=== PATIENT | male | born 1940 | race Caucasian/White ===

== ENCOUNTER 2019-08-17 15:58 | Emergency (ER) | payer MEDICARE, BC ==
[~2019-08-17] VITALS: Ht 182.9 cm; Wt 100.0 kg
[~2019-08-17 15:58] MED LIST: ASPI-1264 PO; FAMO-128 PO; LISI-642 PO; MULT1TAB74 PO; NITR0.4T SL; ROSU10TA2 PO; TADA5TAB2 PO
[2019-08-17 16:24] LABS: BASOPHILS # (AUTO) 0.1 X10'3 (0-0.2); BASOPHILS % (AUTO) 0.9 % (0-1); EOSINOPHILS # (AUTO) 0.2 X10'3 (0-0.9); EOSINOPHILS % (AUTO) 2.3 % (0-6); HEMOGLOBIN 14.4 g/dl (14.0-17.9); LYMPHOCYTES # (AUTO) 2.1 X10'3 (1.1-4.8); LYMPHOCYTES % (AUTO) 30.7 % (21-51); MEAN CORPUSCULAR VOLUME 94.1 FL (78-98); MEAN PLATELET VOLUME 7.4 FL (7.4-10.4); MONOCYTES # (AUTO) 0.7 X10'3 (0-0.9); MONOCYTES % (AUTO) 10.1 % (2-12); NEUTROPHILS # (AUTO) 3.8 X10'3 (1.8-7.7); PLATELET COUNT 199 X10'3 (140-440); RED BLOOD COUNT 4.36 X10'6 (4.70-6.10); RED CELL DISTRIBUTION WIDTH 12.9 % (11.5-14.5); WHITE BLOOD COUNT 6.7 X10'3 (4.5-11.0)
[2019-08-17 16:36] LABS: ALANINE AMINOTRANSFERASE 20 U/L (12-78); ALBUMIN 3.4 G/DL (3.4-5.0); ALBUMIN/GLOBULIN RATIO 0.9 (1.1-1.5); ANION GAP 7 (8-16); ASPARTATE AMINO TRANSFERASE 17 U/L (10-37); BILIRUBIN,TOTAL 0.3 MG/DL (0.1-1.0); BLOOD UREA NITROGEN 20 MG/DL (7-18); BUN/CREATININE RATIO 16.8 (5.4-32.0); CALCIUM 8.3 MG/DL (8.5-10.1); CHLORIDE 105 MMOL/L (99-107); CREATININE 1.19 MG/DL (0.60-1.10); GLUCOSE 119 MG/DL (70-104); POTASSIUM 4.3 MMOL/L (3.5-5.1); SODIUM 139 MMOL/L (135-145); eGFR 59 ML/MIN
[2019-08-17 16:47] LABS: ALKALINE PHOSPHATASE 90 IU/L (46-116)
--- NOTE | 2019-08-17 17:18 | NUR ---
Relieving RN for lunch. Pt is resting quietly. Resp. even and unlabored. Pt states left sided chest pain has resolved. Family at bedside.
[2019-08-17 17:43] LABS: D-DIMER 1.67 MG/L FEU (0-0.50)
[2019-08-17] MEDS ORDERED: iohexol 350MG/ML 100ml bottle IV ONE (18:05)
[2019-08-17] MEDS ORDERED: normal saline 1000ml 1,000 ML IV ONE (18:15)
--- NOTE | 2019-08-17 18:28 | NUR ---
500 ML NS BOLUS TO BE GIVE AFTER CT SCAN IS DONE PER PA.
[2019-08-17 20:28] VITALS: BP 167/91
== END 2019-08-17 20:29 | disposition home or self-care (01) ==
LOC: ER 15:58
DX: R07.89 Other chest pain (principal); I25.10 Atherosclerotic heart disease of native coronary artery without angina pectoris; E78.00 Pure hypercholesterolemia, unspecified; I10 Essential (primary) hypertension; Z95.5 Presence of coronary angioplasty implant and graft; Z79.82 Long term (current) use of aspirin; Z79.899 Other long term (current) drug therapy
CPT/HCPCS: 36415; 71045; 71260; 80053; 84484; 85025; 85379; 93005; 99284; J7030; Q9967

== ENCOUNTER 2022-03-07 05:15 | Emergency (ER) | payer MEDICARE, BC ==
[~2022-03-07] VITALS: Ht 180.3 cm; Wt 101.1 kg
[~2022-03-07 05:15] MED LIST changes: +MULT-620 PO; -MULT1TAB74 PO
[2022-03-07 07:20] LABS: BASOPHILS % (AUTO) 0.5 % (0-1); EOSINOPHILS # (AUTO) 0.1 X10'3 (0-0.9); HEMATOCRIT 43.8 % (42.0-52.0); HEMOGLOBIN 14.9 g/dl (14.0-17.9); LYMPHOCYTES # (AUTO) 1.5 X10'3 (1.1-4.8); MEAN CORPUSCULAR HGB CONC 34.1 g/dL (33.0-36.5); MEAN CORPUSCULAR VOLUME 93.8 FL (78-98); MEAN PLATELET VOLUME 7.3 FL (7.4-10.4); MONOCYTES # (AUTO) 0.6 X10'3 (0-0.9); MONOCYTES % (AUTO) 9.4 % (2-12); NEUTROPHILS # (AUTO) 4.3 X10'3 (1.8-7.7); NEUTROPHILS % (AUTO) 66.1 % (42-75); PLATELET COUNT 193 X10'3 (140-440); RED BLOOD COUNT 4.67 X10'6 (4.70-6.10); RED CELL DISTRIBUTION WIDTH 13.3 % (11.5-14.5); WHITE BLOOD COUNT 6.4 X10'3 (4.5-11.0)
[2022-03-07 07:37] LABS: ALANINE AMINOTRANSFERASE 19 U/L (12-78); ALBUMIN 3.7 G/DL (3.4-5.0); ALKALINE PHOSPHATASE 76 IU/L (46-116); ANION GAP 11 (8-16); ASPARTATE AMINO TRANSFERASE 21 U/L (10-37); BILIRUBIN,TOTAL 0.5 MG/DL (0.1-1.0); BLOOD UREA NITROGEN 24 MG/DL (7-18); BUN/CREATININE RATIO 19.8 (5.4-32.0); CALCIUM 8.6 MG/DL (8.5-10.1); CHLORIDE 107 MMOL/L (99-107); CREATININE 1.21 MG/DL (0.60-1.10); GLUCOSE 130 MG/DL (70-104); POTASSIUM 4.4 MMOL/L (3.5-5.1); SODIUM 141 MMOL/L (135-145); TOTAL CARBON DIOXIDE 23.5 MMOL/L (24-32); TOTAL PROTEIN 7.3 G/DL (6.4-8.2); eGFR 57 ML/MIN
[2022-03-07 09:14] VITALS: BP 154/69
== END 2022-03-07 09:16 | disposition home or self-care (01) ==
LOC: ER 05:16
DX: R06.02 Shortness of breath (principal); G47.33 Obstructive sleep apnea (adult) (pediatric); I25.10 Atherosclerotic heart disease of native coronary artery without angina pectoris; E78.00 Pure hypercholesterolemia, unspecified; I10 Essential (primary) hypertension; Z95.5 Presence of coronary angioplasty implant and graft; Z79.82 Long term (current) use of aspirin; Z79.899 Other long term (current) drug therapy
CPT/HCPCS: 36415; 71045; 80053; 83880; 84484; 85025; 93005; 99285

== ENCOUNTER 2022-09-08 12:45 | Day surgery (SDC) | payer MEDICARE, BC ==
[2022-09-03 09:29] LABS: BASOPHILS % (AUTO) 0.8 % (0-1); EOSINOPHILS # (AUTO) 0.2 X10'3 (0-0.9); EOSINOPHILS % (AUTO) 3.1 % (0-6); HEMATOCRIT 41.6 % (42.0-52.0); HEMOGLOBIN 14.2 g/dl (14.0-17.9); LYMPHOCYTES # (AUTO) 1.8 X10'3 (1.1-4.8); LYMPHOCYTES % (AUTO) 29.7 % (21-51); MEAN CORPUSCULAR HEMOGLOBIN 32.1 PG (27.0-31.0); MEAN CORPUSCULAR HGB CONC 34.1 g/dL (33.0-36.5); MEAN CORPUSCULAR VOLUME 94.4 FL (78-98); MEAN PLATELET VOLUME 7.1 FL (7.4-10.4); MONOCYTES # (AUTO) 0.7 X10'3 (0-0.9); MONOCYTES % (AUTO) 11.3 % (2-12); NEUTROPHILS # (AUTO) 3.3 X10'3 (1.8-7.7); NEUTROPHILS % (AUTO) 55.1 % (42-75); PLATELET COUNT 189 X10'3 (140-440); RED BLOOD COUNT 4.41 X10'6 (4.70-6.10); RED CELL DISTRIBUTION WIDTH 13.2 % (11.5-14.5)
[2022-09-03 09:42] LABS: APTT 26 SECONDS (22-32)
[2022-09-03 09:48] LABS: ALBUMIN 3.5 G/DL (3.4-5.0); BLOOD UREA NITROGEN 19 MG/DL (7-18); BUN/CREATININE RATIO 15.3 (5.4-32.0); CALCIUM 8.9 MG/DL (8.5-10.1); CHOL/HDL RATIO 2.6 (0.00-4.99); CHOLESTEROL 105 MG/DL (0-200); CREATININE 1.24 MG/DL (0.60-1.10); GLUCOSE 119 MG/DL (70-104); HDL CHOLESTEROL 40 MG/DL (35-60); LDL CHOLESTEROL 46 MG/DL (50-100); TOTAL CARBON DIOXIDE 28.1 MMOL/L (24-32); TRIGLYCERIDES 160 MG/DL (20-135); eGFR 56 ML/MIN
[2022-09-03 10:00] LABS: ANION GAP 9 (8-16); CHLORIDE 105 MMOL/L (99-107); POTASSIUM 4.4 MMOL/L (3.5-5.1); SODIUM 142 MMOL/L (135-145)
[2022-09-08] VITALS (10 sets, daily range): BP systolic 126–165; BP diastolic 58–72
[~2022-09-08] VITALS: Ht 182.9 cm; Wt 102.1 kg
[2022-09-08] MEDS ORDERED: diphenhydrAMINE 25mg capsule PO PRN (13:00)
[2022-09-08] MEDS ORDERED: normal saline 1,000 ML IV SCH (13:00)
[2022-09-08] MEDS ORDERED: LORazepam 0.5 MG tablet PO PRN (13:00)
[2022-09-08] MEDS ORDERED: ASPI81TA52 PO (13:19)
[2022-09-08] MEDS ORDERED: LEVO100T9 PO (13:19)
[2022-09-08] MEDS ORDERED: DUTA0.5C36 PO (13:19)
[2022-09-08] MEDS ORDERED: DOCU-148 PO (13:19)
[2022-09-08] MEDS ORDERED: FLO0.4C PO (13:19)
[2022-09-08] MEDS ORDERED: verapamil 2.5 mg/ml inj IV ONE (15:12)
[2022-09-08] MEDS ORDERED: LIDOcaine 1% (10mg/ml) 2ml vial ONE (15:12)
[2022-09-08] MEDS ORDERED: midazolam 1 mg/ML 2ml injection ONE (15:13)
[2022-09-08] MEDS ORDERED: heparin 1,000unit/ml 10ml vial 10 ML ONE (15:13)
[2022-09-08] MEDS ORDERED: IOHEXOL 350 MG/ML INFUS..BTL 125ML IV ONE (15:13)
[2022-09-08] MEDS ORDERED: fentaNYL/PF 50MCG/1 ML 2ML syringe ONE (15:13)
[2022-09-08] MEDS ORDERED: nitroGLYCERIN-Tridil 50MG/D5W 250 ML IV ONE (15:13)
[2022-09-09 06:26] LABS: ISTAT Hct MIX 35 %PCV (42-52); ISTAT O2 SATURATION MIX VENOUS 67 % (60-80); ISTAT SOURCE VEN
== END 2022-09-08 19:32 | disposition home or self-care (01) ==
LOC: SSTAY O 12:45
PROVIDERS: ATTEND Student in an Organized Health Care Education/Training Program
DX: I25.10 Atherosclerotic heart disease of native coronary artery without angina pectoris (principal); T82.855A Stenosis of coronary artery stent, initial encounter; I35.0 Nonrheumatic aortic (valve) stenosis; Y83.8 Other surgical procedures as the cause of abnormal reaction of the patient, or of later complication, without mention of misadventure at the time of the procedure; G47.33 Obstructive sleep apnea (adult) (pediatric); I10 Essential (primary) hypertension; Z79.82 Long term (current) use of aspirin; Z79.899 Other long term (current) drug therapy
CPT/HCPCS: 36415; 80048; 80061; 82803; 85014; 85025; 85610; 85730; 93005; 93451; 99152; 99153; A6258; C1769; C1894; J1644; J2250; J3010; J3490; J7030; Q9967; 93458; A6402

== ENCOUNTER 2023-03-12 08:39 | Observation (INO) | payer MEDICARE, BC ==
[~2023-03-12] VITALS: Ht 180.3 cm; Wt 90.6 kg
[~2023-03-12 08:39] MED LIST changes: +AMIO200T67 PO; +APIX5TAB3 PO; -ASPI-1264 PO; +ASPI81TA52 PO; +DOCU-148 PO; +DUTA0.5C36 PO; -FAMO-128 PO; +FLO0.4C PO; +HYDR-3972 PO; +LEVO100T9 PO; -LISI-642 PO; +LOP12.5T PO; -NITR0.4T SL; -ROSU10TA2 PO; +ROSU40TA22 PO; -TADA5TAB2 PO
[2023-03-12 09:18] LABS: BASOPHILS % (AUTO) 0.6 % (0-1); EOSINOPHILS # (AUTO) 0.1 X10'3 (0-0.9); EOSINOPHILS % (AUTO) 1.5 % (0-6); HEMATOCRIT 39.9 % (42.0-52.0); HEMOGLOBIN 12.9 g/dl (14.0-17.9); LYMPHOCYTES # (AUTO) 1.3 X10'3 (1.1-4.8); LYMPHOCYTES % (AUTO) 15.3 % (21-51); MEAN CORPUSCULAR HEMOGLOBIN 28.8 PG (27.0-31.0); MEAN CORPUSCULAR HGB CONC 32.4 g/dL (33.0-36.5); MEAN CORPUSCULAR VOLUME 89.1 FL (78-98); MEAN PLATELET VOLUME 7.6 FL (7.4-10.4); MONOCYTES # (AUTO) 0.7 X10'3 (0-0.9); MONOCYTES % (AUTO) 8.8 % (2-12); NEUTROPHILS % (AUTO) 73.8 % (42-75); PLATELET COUNT 171 X10'3 (140-440); RED BLOOD COUNT 4.48 X10'6 (4.70-6.10); RED CELL DISTRIBUTION WIDTH 15.4 % (11.5-14.5); WHITE BLOOD COUNT 8.2 X10'3 (4.5-11.0)
[2023-03-12 10:48] LABS: ALANINE AMINOTRANSFERASE 15 U/L (12-78); ALBUMIN 3.3 G/DL (3.4-5.0); ALBUMIN/GLOBULIN RATIO 0.9 (1.1-1.5); ALKALINE PHOSPHATASE 93 IU/L (46-116); ANION GAP 8 (8-16); ASPARTATE AMINO TRANSFERASE 14 U/L (10-37); BILIRUBIN,TOTAL 0.5 MG/DL (0.1-1.0); BLOOD UREA NITROGEN 22 MG/DL (7-18); BUN/CREATININE RATIO 15.5 (10.0-20.0); CALCIUM 8.6 MG/DL (8.5-10.1); CHLORIDE 103 MMOL/L (99-107); CREATININE 1.42 MG/DL (0.60-1.10); GLUCOSE 231 MG/DL (70-104); POTASSIUM 4.1 MMOL/L (3.5-5.1); SODIUM 135 MMOL/L (135-145); eGFR 47 ML/MIN
[2023-03-12] MEDS ORDERED: aspirin 81mg tab.chew PO ONE (16:15)
[2023-03-12] MEDS ORDERED: nitroGLYCERIN 1gm ointment UD TP ONE (16:15)
[2023-03-12] MEDS ORDERED: diltiazem 5mg/ml 5ml inj. IV ONE (16:15)
--- NOTE | 2023-03-12 16:35 | NUR ---
DR DIAZ AT BEDSIDE.
--- NOTE | 2023-03-12 16:59 | NUR ---
RECEVIVED VERBAL ORDERS FROM DR DIAZ FOR DILTAZEAM 100MG /100ML INFUSE AT 5 MG/HR FOR AFIB RVR.
[2023-03-12] MEDS ORDERED: diltiazem-NS 100mg/100ml 100 ML IV SCH (17:00)
[2023-03-12] MEDS ORDERED: METO-395 PO (17:11)
[2023-03-12] MEDS ORDERED: multivitamins, therapeutics tablet PO SCH (18:10)
[2023-03-12] MEDS ORDERED: potassium Cl 20 mEq SR tablet PO PRN ×2 (18:15)
[2023-03-12] MEDS ORDERED: ondansetron/PF 4mg/2ml inj IV PRN (18:15)
[2023-03-12] MEDS ORDERED: magnesium 4gm in 100ml NS 100 ML IV PRN (18:15)
[2023-03-12] MEDS ORDERED: diphenhydrAMINE 25mg capsule PO PRN (18:15)
[2023-03-12] MEDS ORDERED: mag hydrox/Alum hydrox/simeth 30ml oral suspension PO PRN (18:15)
[2023-03-12] MEDS ORDERED: potassium Cl 40MEQ/1/2NS 520ml 520 ML IV PRN (18:15)
[2023-03-12] MEDS ORDERED: PERFLUTREN PROTEIN-A MICROSPHR (Optison) 0.22 MG/ML 3ML VIAL IV ONE (18:15)
[2023-03-12] MEDS ORDERED: bisacodyl 10mg suppository rectal RC PRN (18:15)
[2023-03-12] MEDS ORDERED: magnesium hydroxide 30ml (MOM) UD suspension PO PRN (18:15)
[2023-03-12] MEDS ORDERED: magnesium 2GM in 50ml NS 50 ML IV PRN (18:15)
[2023-03-12] MEDS ORDERED: magnesium Cl slow-release 64mg tablet PO PRN (18:15)
--- NOTE | 2023-03-12 18:36 | NUR ---
ASSUMED CARE FROM GAY, URINE OBTAINED AND NO COMPLAINTS AT THIS TIME
[2023-03-12 18:50] LABS: CLARITY,URINE CLEAR (Clear); COLOR,URINE YELLOW (Yellow); GLUCOSE, URINE NEGATIVE (Neg); KETONES,URINE NEGATIVE (Neg); LEUKOCYTE ESTERASE ,URINE NEGATIVE (Neg); NITRITES, URINE NEGATIVE (Neg); OCCULT BLOOD,URINE NEGATIVE (Neg); PROTEIN,URINE TRACE mg/dl (Neg); UROBILINOGEN,URINE 0.2 E.U/dL (0.2-1.0)
[2023-03-12] MEDS: normal saline 1000ml 1,000 ML IV SCH (18:53)
[2023-03-12 18:55] LABS: HEMOGLOBIN A1C 6.1 % (4.5-6.2)
[2023-03-12 18:57] LABS: UA COLLECTION TYPE URINAL
[2023-03-12 19:00] LABS: BACTERIA,URINE FEW /HPF (Neg); MUCUS STRANDS NONE SEEN /LPF (Neg); RBC,URINE 0-2 /HPF (0-2); SQUAMOUS EPITHELIAL CELL,UR NONE SEEN /LPF (FEW)
[2023-03-12] MEDS ORDERED: K and/or MAG REPLACEMENT MC SCH (20:00)
[2023-03-12] MEDS: docusate sod 100mg capsule PO SCH (20:00)
[2023-03-12] MEDS: tamsulosin 0.4mg capsule PO SCH (20:00)
--- NOTE | 2023-03-12 21:35 | NUR ---
pt unable to tolerate our bipap due to the mask. pt daughter to bring home bipap from home shortly
[2023-03-12] MEDS: apixaban 5mg tablet PO SCH (22:35)
[2023-03-12 22:45] VITALS: BP 114/68
[2023-03-12 23:00] VITALS: BP 117/66
[2023-03-12 23:15] VITALS: BP 106/63
[2023-03-12 23:30] VITALS: BP 95/70
[2023-03-13] VITALS (10 sets, daily range): BP systolic 82–115; BP diastolic 46–73
[2023-03-13 06:20] LABS: BASOPHILS % (AUTO) 0.3 % (0-1); EOSINOPHILS % (AUTO) 0.4 % (0-6); HEMATOCRIT 35.7 % (42.0-52.0); HEMOGLOBIN 11.7 g/dl (14.0-17.9); LYMPHOCYTES # (AUTO) 1.6 X10'3 (1.1-4.8); LYMPHOCYTES % (AUTO) 17.2 % (21-51); MEAN CORPUSCULAR HEMOGLOBIN 29.1 PG (27.0-31.0); MEAN CORPUSCULAR HGB CONC 32.9 g/dL (33.0-36.5); MEAN CORPUSCULAR VOLUME 88.6 FL (78-98); MEAN PLATELET VOLUME 7.8 FL (7.4-10.4); MONOCYTES # (AUTO) 1.3 X10'3 (0-0.9); MONOCYTES % (AUTO) 14.6 % (2-12); NEUTROPHILS # (AUTO) 6.1 X10'3 (1.8-7.7); NEUTROPHILS % (AUTO) 67.5 % (42-75); PLATELET COUNT 165 X10'3 (140-440); RED BLOOD COUNT 4.03 X10'6 (4.70-6.10); RED CELL DISTRIBUTION WIDTH 15.3 % (11.5-14.5); WHITE BLOOD COUNT 9.1 X10'3 (4.5-11.0)
[2023-03-13 06:42] LABS: ALANINE AMINOTRANSFERASE 13 U/L (12-78); ALBUMIN 2.7 G/DL (3.4-5.0); ALBUMIN/GLOBULIN RATIO 0.8 (1.1-1.5); ALKALINE PHOSPHATASE 73 IU/L (46-116); ANION GAP 10 (8-16); ASPARTATE AMINO TRANSFERASE 12 U/L (10-37); BILIRUBIN,TOTAL 0.7 MG/DL (0.1-1.0); BLOOD UREA NITROGEN 25 MG/DL (7-18); BUN/CREATININE RATIO 20.5 (10.0-20.0); CALCIUM 8.1 MG/DL (8.5-10.1); CHLORIDE 104 MMOL/L (99-107); CHOLESTEROL 84 MG/DL (0-200); CREATININE 1.22 MG/DL (0.60-1.10); GLUCOSE 123 MG/DL (70-104); HDL CHOLESTEROL 43 MG/DL (35-60); LDL CHOLESTEROL 32 MG/DL (50-100); MAGNESIUM 2.1 MG/DL (1.5-2.4); PHOSPHORUS 3.4 MG/DL (2.3-4.5); POTASSIUM 4.1 MMOL/L (3.5-5.1); SODIUM 137 MMOL/L (135-145); TOTAL CARBON DIOXIDE 23.3 MMOL/L (24-32); TOTAL PROTEIN 6.2 G/DL (6.4-8.2); TRIGLYCERIDES 60 MG/DL (20-135); eGFR 57 ML/MIN
--- NOTE | 2023-03-13 06:55 | NUR ---
Patient in room PCU 3023L. I have received report from Maria Luz CAMPOVERDE and had the opportunity to ask questions and assume patient care. Pt laying low fowlers in bed and is resting comfortably. Pt on RA, no s/s of distress. Pt declines c/o pain at this time. Pt on Cardizem GTT running @5ml/hr. VSS, PT still in AFib. BLL, call light within reach, frequently used items in reach, frequent rounidng, admissions manager socks on. Will continue to monitor.
[2023-03-13] MEDS: docusate sod 100mg capsule PO SCH (07:28)
[2023-03-13] MEDS: apixaban 5mg tablet PO SCH (07:29)
[2023-03-13] MEDS: tamsulosin 0.4mg capsule PO SCH (07:29)
[2023-03-13] MEDS ORDERED: aspirin 81mg, enteric-coated 1 TAB TABLET.DR PO SCH (08:00)
[2023-03-13] MEDS ORDERED: atorvastatin 20mg tablet PO SCH (08:00)
[2023-03-13] MEDS ORDERED: dutasteride 0.5 MG capsule PO SCH (08:00)
[2023-03-13] MEDS ORDERED: metoprolol succinate 25mg (24-HOUR) SR. Tablet PO SCH (08:00)
[2023-03-13] MEDS ORDERED: levoTHYROXINE 100mcg tablet PO SCH (08:00)
[2023-03-13] MEDS ORDERED: docusate sod 100mg capsule PO SCH (08:00)
--- NOTE | 2023-03-13 13:56 | NUR ---
PAGER ID: [phone] MESSAGE: Enrico Sanderson [id number] - VSS, No changes in HR. Pt sated he did excellent. No issues. -Jackie GOMEZ [phone] Addendum: 03/13/23 at 1418 by Jackie Yee RN [email or web address] pager entered
--- NOTE | 2023-03-13 14:18 | NUR ---
PAGER ID: [phone] MESSAGE: Enrico Sanderson [id number] - VSS, No changes in HR. PT sated he did excellent. No issues. -Jackie [phone] [phone]
[2023-03-13] MEDS: normal saline 1000ml 1,000 ML IV SCH (14:19)
[2023-03-13] MEDS ORDERED: APIX5TAB3 PO (14:44)
[2023-03-13] MEDS ORDERED: METO-395 PO (14:44)
--- NOTE | 2023-03-13 15:54 | NUR ---
Pt DC'd to personal vehicle. PIV to RFA removed, tip intact, no c/o pain with removal. VSS, Pt afebrile, no issues with medications. Discharge education provided. All discharge questions answered. All belongings left with Pt.
== END 2023-03-13 15:36 | disposition home or self-care (01) ==
LOC: ER 08:39 → INTOOBSV 18:23 → ED HOLD 18:23 → PCU 3S 22:10
PROVIDERS: ADMIT Family Medicine; ATTEND Family Medicine
DX: I48.91 Unspecified atrial fibrillation (principal); I25.10 Atherosclerotic heart disease of native coronary artery without angina pectoris; I10 Essential (primary) hypertension; E78.5 Hyperlipidemia, unspecified; N40.0 Benign prostatic hyperplasia without lower urinary tract symptoms; E03.9 Hypothyroidism, unspecified; E78.00 Pure hypercholesterolemia, unspecified; Z79.899 Other long term (current) drug therapy
CPT/HCPCS: 36415; 71045; 80053; 80061; 81001; 83036; 83735; 83880; 84100; 84443; 84484; 85025; 87081; 87088; 93005; 93306; 94660; 94760; 96361; 96365; 96366; 96376; 97161; 97530; 99285; G0378; J3490; J7030

== ENCOUNTER 2023-03-27 16:15 | Emergency (ER) | payer MEDICARE, BC ==
[~2023-03-27] VITALS: Ht 180.3 cm; Wt 99.8 kg
[~2023-03-27 16:15] MED LIST changes: -AMIO200T67 PO; -ASPI81TA52 PO; -HYDR-3972 PO; -LOP12.5T PO; +METO-395 PO
[2023-03-27] MEDS ORDERED: ondansetron 4mg rapidly disintigrating tab PO ONE (16:50)
[2023-03-27] MEDS ORDERED: ONDA4TAB12 PO (16:50)
[2023-03-27 17:19] VITALS: BP 146/80
== END 2023-03-27 17:25 | disposition home or self-care (01) ==
LOC: ER 16:16
DX: U07.1 COVID-19 (principal); E78.00 Pure hypercholesterolemia, unspecified; I10 Essential (primary) hypertension; Z88.6 Allergy status to analgesic agent
CPT/HCPCS: 99283

== ENCOUNTER 2023-04-03 06:10 | Emergency (ER) | payer MEDICARE, BC ==
[~2023-04-03] VITALS: Ht 180.3 cm; Wt 95.5 kg
[~2023-04-03 06:10] MED LIST changes: +ONDA4TAB12 PO
[2023-04-03 07:01] LABS: BASOPHILS % (AUTO) 0.4 % (0-1); EOSINOPHILS % (AUTO) 0.5 % (0-6); HEMOGLOBIN 14.1 g/dl (14.0-17.9); LYMPHOCYTES # (AUTO) 1.4 X10'3 (1.1-4.8); MEAN CORPUSCULAR HEMOGLOBIN 28.9 PG (27.0-31.0); MEAN CORPUSCULAR HGB CONC 32.8 g/dL (33.0-36.5); MEAN CORPUSCULAR VOLUME 87.9 FL (78-98); MEAN PLATELET VOLUME 7.5 FL (7.4-10.4); MONOCYTES # (AUTO) 0.6 X10'3 (0-0.9); MONOCYTES % (AUTO) 9.3 % (2-12); NEUTROPHILS # (AUTO) 4.3 X10'3 (1.8-7.7); NEUTROPHILS % (AUTO) 67.8 % (42-75); PLATELET COUNT 200 X10'3 (140-440); RED BLOOD COUNT 4.89 X10'6 (4.70-6.10); RED CELL DISTRIBUTION WIDTH 15.6 % (11.5-14.5); WHITE BLOOD COUNT 6.3 X10'3 (4.5-11.0)
[2023-04-03 07:11] LABS: APTT 31 SECONDS (22-32)
[2023-04-03 07:15] LABS: ALANINE AMINOTRANSFERASE 30 U/L (12-78); ALBUMIN 3.2 G/DL (3.4-5.0); ALBUMIN/GLOBULIN RATIO 0.8 (1.1-1.5); ALKALINE PHOSPHATASE 98 IU/L (46-116); ANION GAP 9 (8-16); ASPARTATE AMINO TRANSFERASE 28 U/L (10-37); BILIRUBIN,TOTAL 0.5 MG/DL (0.1-1.0); BLOOD UREA NITROGEN 22 MG/DL (7-18); BUN/CREATININE RATIO 13.4 (10.0-20.0); CALCIUM 9.1 MG/DL (8.5-10.1); CHLORIDE 104 MMOL/L (99-107); CREATININE 1.64 MG/DL (0.60-1.10); GLUCOSE 159 MG/DL (70-104); POTASSIUM 4.5 MMOL/L (3.5-5.1); SODIUM 138 MMOL/L (135-145); TOTAL CARBON DIOXIDE 24.8 MMOL/L (24-32); TOTAL PROTEIN 7.3 G/DL (6.4-8.2); eGFR 40 ML/MIN
[2023-04-03] MEDS ORDERED: normal saline 1000ML IV soln IVB ONE (08:45)
[2023-04-03 10:20] LABS: CLARITY,URINE CLEAR (Clear); COLOR,URINE YELLOW (Yellow); GLUCOSE, URINE NEGATIVE (Neg); KETONES,URINE NEGATIVE (Neg); LEUKOCYTE ESTERASE ,URINE NEGATIVE (Neg); NITRITES, URINE NEGATIVE (Neg); OCCULT BLOOD,URINE NEGATIVE (Neg); PROTEIN,URINE TRACE mg/dl (Neg); UROBILINOGEN,URINE 0.2 E.U/dL (0.2-1.0)
[2023-04-03 10:23] LABS: UA COLLECTION TYPE CLN CATCH MIDSTREAM
[2023-04-03 10:24] LABS: SQUAMOUS EPITHELIAL CELL,UR FEW /LPF (FEW)
[2023-04-03 10:25] LABS: BACTERIA,URINE FEW /HPF (Neg); RBC,URINE 0-2 /HPF (0-2); WBC,URINE 0-4 /HPF (0-4)
[2023-04-03] MEDS ORDERED: metoprolol tartrate 1mg/ml inj IV ONE (11:20)
[2023-04-03 12:17] VITALS: BP 136/88
== END 2023-04-03 12:18 | disposition home or self-care (01) ==
LOC: ER 06:10
DX: I48.91 Unspecified atrial fibrillation (principal); R06.00 Dyspnea, unspecified; E78.00 Pure hypercholesterolemia, unspecified; I10 Essential (primary) hypertension; Z88.6 Allergy status to analgesic agent; Z88.8 Allergy status to other drugs, medicaments and biological substances
CPT/HCPCS: 36415; 71045; 80053; 81001; 83880; 84484; 85025; 85610; 85730; 93005; 96361; 96374; 99285; J3490; J7030

== ENCOUNTER 2023-04-08 09:42 | Emergency (ER) | payer MEDICARE, BC ==
[~2023-04-08] VITALS: Ht 180.3 cm; Wt 92.3 kg
--- NOTE | 2023-04-08 09:50 | NUR ---
USING RESTROOM AT THIS TIME.
[2023-04-08 10:33] LABS: BASOPHILS % (AUTO) 0.7 % (0-1); EOSINOPHILS % (AUTO) 0.6 % (0-6); HEMATOCRIT 41.3 % (42.0-52.0); HEMOGLOBIN 13.6 g/dl (14.0-17.9); LYMPHOCYTES # (AUTO) 1.3 X10'3 (1.1-4.8); LYMPHOCYTES % (AUTO) 19.4 % (21-51); MEAN CORPUSCULAR HGB CONC 32.9 g/dL (33.0-36.5); MEAN CORPUSCULAR VOLUME 87.9 FL (78-98); MEAN PLATELET VOLUME 7.2 FL (7.4-10.4); MONOCYTES # (AUTO) 0.7 X10'3 (0-0.9); MONOCYTES % (AUTO) 9.8 % (2-12); NEUTROPHILS # (AUTO) 4.6 X10'3 (1.8-7.7); NEUTROPHILS % (AUTO) 69.5 % (42-75); PLATELET COUNT 226 X10'3 (140-440); RED CELL DISTRIBUTION WIDTH 15.8 % (11.5-14.5); WHITE BLOOD COUNT 6.7 X10'3 (4.5-11.0)
[2023-04-08 10:46] LABS: ALANINE AMINOTRANSFERASE 28 U/L (12-78); ALBUMIN 3.3 G/DL (3.4-5.0); ALBUMIN/GLOBULIN RATIO 0.9 (1.1-1.5); ALKALINE PHOSPHATASE 90 IU/L (46-116); ANION GAP 12 (8-16); ASPARTATE AMINO TRANSFERASE 26 U/L (10-37); BILIRUBIN,TOTAL 0.4 MG/DL (0.1-1.0); BLOOD UREA NITROGEN 19 MG/DL (7-18); BUN/CREATININE RATIO 11.9 (10.0-20.0); CALCIUM 8.7 MG/DL (8.5-10.1); CHLORIDE 104 MMOL/L (99-107); CREATININE 1.59 MG/DL (0.60-1.10); GLUCOSE 145 MG/DL (70-104); POTASSIUM 4.4 MMOL/L (3.5-5.1); SODIUM 139 MMOL/L (135-145); TOTAL CARBON DIOXIDE 22.7 MMOL/L (24-32); TOTAL PROTEIN 6.8 G/DL (6.4-8.2); eGFR 42 ML/MIN
[2023-04-08 11:22] VITALS: BP 128/56
[2023-04-08 11:44] LABS: D-DIMER 1.05 MG/L FEU (0-0.50)
[2023-04-08] MEDS ORDERED: normal saline 1000ML IV soln IVB ONE (12:05)
[2023-04-08] MEDS ORDERED: iohexol 350MG/ML 100ml bottle IV ONE (12:13)
== END 2023-04-08 13:33 | disposition home or self-care (01) ==
LOC: ER 09:43
DX: U07.1 COVID-19 (principal); I11.0 Hypertensive heart disease with heart failure; E78.00 Pure hypercholesterolemia, unspecified; E03.9 Hypothyroidism, unspecified; Z88.6 Allergy status to analgesic agent; Z88.5 Allergy status to narcotic agent; Z79.899 Other long term (current) drug therapy
CPT/HCPCS: 36415; 71045; 71275; 80053; 83880; 84484; 85025; 85379; 93005; 99285; J3490; Q9967

== ENCOUNTER 2023-04-17 16:25 | Emergency (ER) | payer MEDICARE, BC ==
[~2023-04-17] VITALS: Ht 180.3 cm; Wt 94.1 kg
[2023-04-17 16:45] LABS: BASOPHILS % (AUTO) 0.7 % (0-1); EOSINOPHILS # (AUTO) 0.1 X10'3 (0-0.9); EOSINOPHILS % (AUTO) 1.8 % (0-6); HEMATOCRIT 38.2 % (42.0-52.0); HEMOGLOBIN 12.6 g/dl (14.0-17.9); LYMPHOCYTES # (AUTO) 1.7 X10'3 (1.1-4.8); LYMPHOCYTES % (AUTO) 30.2 % (21-51); MEAN CORPUSCULAR HEMOGLOBIN 29.8 PG (27.0-31.0); MEAN CORPUSCULAR VOLUME 90.2 FL (78-98); MEAN PLATELET VOLUME 7.6 FL (7.4-10.4); MONOCYTES # (AUTO) 0.6 X10'3 (0-0.9); MONOCYTES % (AUTO) 11.4 % (2-12); NEUTROPHILS # (AUTO) 3.2 X10'3 (1.8-7.7); NEUTROPHILS % (AUTO) 55.9 % (42-75); PLATELET COUNT 154 X10'3 (140-440); RED BLOOD COUNT 4.24 X10'6 (4.70-6.10); RED CELL DISTRIBUTION WIDTH 17.1 % (11.5-14.5); WHITE BLOOD COUNT 5.7 X10'3 (4.5-11.0)
[2023-04-17 16:58] LABS: ALANINE AMINOTRANSFERASE 26 U/L (12-78); ALBUMIN 3.2 G/DL (3.4-5.0); ALKALINE PHOSPHATASE 89 IU/L (46-116); ANION GAP 11 (8-16); ASPARTATE AMINO TRANSFERASE 23 U/L (10-37); BILIRUBIN,TOTAL 0.4 MG/DL (0.1-1.0); BLOOD UREA NITROGEN 21 MG/DL (7-18); BUN/CREATININE RATIO 15.6 (10.0-20.0); CALCIUM 8.4 MG/DL (8.5-10.1); CHLORIDE 106 MMOL/L (99-107); CREATININE 1.35 MG/DL (0.60-1.10); GLUCOSE 115 MG/DL (70-104); POTASSIUM 4.1 MMOL/L (3.5-5.1); SODIUM 141 MMOL/L (135-145); TOTAL CARBON DIOXIDE 23.6 MMOL/L (24-32); TOTAL PROTEIN 6.5 G/DL (6.4-8.2); eGFR 50 ML/MIN
[2023-04-17 17:25] VITALS: BP 151/62
[2023-04-17 18:15] LABS: CLARITY,URINE CLEAR (Clear); COLOR,URINE YELLOW (Yellow); GLUCOSE, URINE NEGATIVE (Neg); KETONES,URINE NEGATIVE (Neg); LEUKOCYTE ESTERASE ,URINE NEGATIVE (Neg); NITRITES, URINE NEGATIVE (Neg); OCCULT BLOOD,URINE NEGATIVE (Neg); PROTEIN,URINE NEGATIVE (Neg); UROBILINOGEN,URINE 0.2 E.U/dL (0.2-1.0)
[2023-04-17 18:18] LABS: UA COLLECTION TYPE VOIDED
== END 2023-04-17 18:26 | disposition home or self-care (01) ==
LOC: ER 16:25
DX: R00.2 Palpitations (principal); R53.1 Weakness; I11.0 Hypertensive heart disease with heart failure; E78.00 Pure hypercholesterolemia, unspecified; E07.9 Disorder of thyroid, unspecified; Z88.5 Allergy status to narcotic agent; Z79.899 Other long term (current) drug therapy; Z79.1 Long term (current) use of non-steroidal anti-inflammatories (NSAID); Z79.2 Long term (current) use of antibiotics
CPT/HCPCS: 36415; 71045; 80053; 81003; 83880; 84484; 85025; 93005; 99285

== ENCOUNTER 2024-10-22 14:00 | Emergency (ER) | payer MEDICARE, BC ==
[~2024-10-22] VITALS: Ht 180.3 cm; Wt 100.0 kg
[~2024-10-22 14:00] MED LIST changes: +ONDA-243 PO; -ONDA4TAB12 PO; -ROSU40TA22 PO; +ROSU40TA89 PO
[2024-10-22 15:06] LABS: BASOPHILS # (AUTO) 0.1 X10'3 (0-0.2); BASOPHILS % (AUTO) 0.8 % (0-1); EOSINOPHILS # (AUTO) 0.1 X10'3 (0-0.9); EOSINOPHILS % (AUTO) 1.4 % (0-6); HEMATOCRIT 41.5 % (42.0-52.0); HEMOGLOBIN 14.4 g/dl (14.0-17.9); LYMPHOCYTES # (AUTO) 1.4 X10'3 (1.1-4.8); LYMPHOCYTES % (AUTO) 20.1 % (21-51); MEAN CORPUSCULAR HEMOGLOBIN 33.2 PG (27.0-31.0); MEAN CORPUSCULAR HGB CONC 34.8 g/dL (33.0-36.5); MEAN CORPUSCULAR VOLUME 95.5 FL (78-98); MEAN PLATELET VOLUME 7.7 FL (7.4-10.4); MONOCYTES # (AUTO) 0.8 X10'3 (0-0.9); MONOCYTES % (AUTO) 11.4 % (2-12); NEUTROPHILS # (AUTO) 4.6 X10'3 (1.8-7.7); NEUTROPHILS % (AUTO) 66.3 % (42-75); PLATELET COUNT 175 X10'3 (140-440); RED BLOOD COUNT 4.34 X10'6 (4.70-6.10); WHITE BLOOD COUNT 6.9 X10'3 (4.5-11.0)
[2024-10-22 15:15] LABS: ALANINE AMINOTRANSFERASE 25 U/L (12-78); ALBUMIN 3.4 G/DL (3.4-5.0); ALKALINE PHOSPHATASE 102 IU/L (46-116); ANION GAP 7 (8-16); ASPARTATE AMINO TRANSFERASE 17 U/L (10-37); BILIRUBIN,TOTAL 0.4 MG/DL (0.1-1.0); BLOOD UREA NITROGEN 20 MG/DL (7-18); BUN/CREATININE RATIO 14.9 (10.0-20.0); CALCIUM 8.8 MG/DL (8.5-10.1); CHLORIDE 106 MMOL/L (99-107); CREATININE 1.34 MG/DL (0.60-1.10); GLUCOSE 141 MG/DL (70-104); POTASSIUM 4.5 MMOL/L (3.5-5.1); SODIUM 140 MMOL/L (135-145); TOTAL CARBON DIOXIDE 26.7 MMOL/L (24-32); TOTAL PROTEIN 6.8 G/DL (6.4-8.2); eCRCL 43 ML/MIN; eGFR 51 ML/MIN
[2024-10-22 15:23] LABS: PRO BRAIN NATRIURETIC PEPTIDE 556 PG/ML (0-450)
[2024-10-22 16:10] VITALS: BP 161/88; PULSE 68; RESP 16; TEMP 98.3; O2SAT 98
== END 2024-10-22 16:11 | disposition home or self-care (01) ==
LOC: ER 14:01
DX: R07.89 Other chest pain (principal); I10 Essential (primary) hypertension; I25.10 Atherosclerotic heart disease of native coronary artery without angina pectoris; E78.00 Pure hypercholesterolemia, unspecified; I48.91 Unspecified atrial fibrillation; G47.30 Sleep apnea, unspecified; E07.9 Disorder of thyroid, unspecified; Z88.5 Allergy status to narcotic agent; Z95.1 Presence of aortocoronary bypass graft; Z72.89 Other problems related to lifestyle; Z79.899 Other long term (current) drug therapy
CPT/HCPCS: 36415; 71045; 80053; 83880; 84484; 85025; 93005; 99285